=== PATIENT | female | born 1950 | race Caucasian/White ===

== ENCOUNTER 2017-06-19 14:59 | Inpatient (IN) | payer OTHER, MEDICARE ==
[~2017-06-19] VITALS: Ht 157.5 cm; Wt 68.0 kg
[2017-06-19] VITALS (7 sets, daily range): BP systolic 119–166; BP diastolic 76–94
[~2017-06-19 14:59] MED LIST: ARIMIDEX1 MG PO; AUGMENTIN500TAB PO; CETIRIZ/PSE1 TAB PO; COMBIVENT RESPIMAT IN; EQ OMEPRAZOLE20 MG PO; FLONASE NASAL50 MCG; MAXZIDE-2537.5 MG/TA PO; MECLIZINE25 M1 PO; MEDDOSEPAK PO; ONDANSETRON4 MG PO; PREDNISONE20 MG PO; SPIRIVA HANDIHALER IN; SYMBICORT1 AE1 IN; XGEVA SC; ZPAK PO
[2017-06-19 15:50] LABS: HEMATOCRIT 38.5 % (37.0-47.0); HEMOGLOBIN 13.4 g/dl (12.0-16.0); IMMATURE GRANULOCYTES 4.6 % (0.0-1.0); MEAN CELL VOLUME 82.6 fL CALC (80.0-100.0); MEAN CORPUSCULAR HGB 28.8 pG CALC (26.0-32.0); MEAN CORPUSCULAR HGB CONC 34.8 g/L CALC (32.0-36.0); NEUT# 9.1 thou/uL (2.00-7.15); RED BLOOD COUNT 4.66 mill/uL (4.20-5.60); RED CELL DISTRI WIDTH 14.4 % (11.5-15.5)
[2017-06-19 16:04] LABS: ALBUMIN 3.7 g/dL (3.2-5.0); BILIRUBIN, TOTAL 0.5 mg/dL (0.0-1.4); CALCIUM 8.3 mg/dL (8.4-10.2); TOTAL PROTEIN 6.1 g/dL (6.3-8.2)
[2017-06-19 16:36] LABS: POTASSIUM 5.2 mmol/l (3.5-5.1)
[2017-06-19 16:37] LABS: CREATININE 8.1 mg/dL (0.5-1.0)
[2017-06-19 20:23] LABS: CALCIUM 7.6 mg/dL (8.4-10.2)
[2017-06-19 20:31] LABS: CREATININE 8.3 mg/dL (0.5-1.0); POTASSIUM 5.4 mmol/l (3.5-5.1)
[2017-06-19 23:24] LABS: URINE BLOOD DIPSTICK LARGE (NEGATIVE); URINE CLARITY CLEAR; URINE COLOR YELLOW; URINE GLUCOSE - DIPSTICK NEGATIVE (NEGATIVE); URINE KETONE NEGATIVE (NEGATIVE); URINE LEUK ESTERASE LARGE (NEGATIVE); URINE NITRITE - DIPSTICK NEGATIVE (Negative); URINE PROTEIN - DIPSTICK TRACE mg/dL (NEG-TRACE); URINE SPECIFIC GRAVITY <=1.005; URINE UROBILINOGEN - DIPSTICK 0.2 E.U./dL (0.2)
[2017-06-19 23:26] LABS: URINE BILIRUBIN - DIPSTICK NEGATIVE (NEGATIVE)
[2017-06-19 23:36] LABS: URINE BACTERIA FEW hpf; URINE RBC >100 RBC/hpf (0-5); URINE SQUAMOUS EPITHELIAL CELL FEW EPI/hpf (0-FEW)
[2017-06-20 00:01] VITALS: BP 139/57
[2017-06-20 05:18] LABS: HEMATOCRIT 35.5 % (37.0-47.0); HEMOGLOBIN 12.6 g/dl (12.0-16.0); MEAN CELL VOLUME 82.4 fL CALC (80.0-100.0); MEAN CORPUSCULAR HGB 29.2 pG CALC (26.0-32.0); MEAN CORPUSCULAR HGB CONC 35.5 g/L CALC (32.0-36.0); NEUT# 10.48 thou/uL (2.00-7.15); RED BLOOD COUNT 4.31 mill/uL (4.20-5.60); RED CELL DISTRI WIDTH 14.3 % (11.5-15.5)
[2017-06-20 05:42] LABS: ALBUMIN 3.3 g/dL (3.2-5.0); BILIRUBIN, TOTAL 0.5 mg/dL (0.0-1.4); CALCIUM 6.9 mg/dL (8.4-10.2); TOTAL PROTEIN 5.6 g/dL (6.3-8.2)
[2017-06-20 05:52] LABS: CREATININE 8.5 mg/dL (0.5-1.0); POTASSIUM 5.4 mmol/l (3.5-5.1)
[2017-06-20 06:00] VITALS: BP 128/82
[2017-06-20 08:00] VITALS: BP 136/69
[2017-06-20 10:00] VITALS: BP 135/83
[2017-06-20] MEDS ORDERED: ASPIRINCHW 81MG PO (11:53)
[2017-06-20] MEDS ORDERED: CLOPIDOGREL75 MG PO (11:54)
[2017-06-20] MEDS ORDERED: COMBIVENT RESPIMAT IN (11:58)
[2017-06-20] MEDS ORDERED: DUONEB IN (11:59)
[2017-06-20 12:00] VITALS: BP 112/80
[2017-06-20] MEDS ORDERED: LOPRESSOR50 M1 PO (12:01)
[2017-06-20] MEDS ORDERED: PRAVASTATIN40 MG (12:04)
[2017-06-20] MEDS ORDERED: PROAIR RES108 MCG/AC IN (12:05)
[2017-06-20] MEDS ORDERED: VITAMIN B CO PO (12:07)
[2017-06-20] MEDS ORDERED: PROTONIX40 M2 PO (12:11)
== END 2017-06-20 13:20 | DRG 683 ==
LOC: MS2 14:59 → ICU 22:33
PROVIDERS: ADMIT Internal Medicine Geriatric Medicine; ATTEND Internal Medicine Geriatric Medicine
PROC: 0T9B70Z Drainage of Bladder with Drainage Device, Via Natural or Artificial Opening (ICD-10-PCS; principal; 2017-06-19)
DX: N17.9 Acute kidney failure, unspecified (principal); E87.1 Hypo-osmolality and hyponatremia; J44.9 Chronic obstructive pulmonary disease, unspecified; I25.10 Atherosclerotic heart disease of native coronary artery without angina pectoris; Z85.3 Personal history of malignant neoplasm of breast; Z92.3 Personal history of irradiation; Z92.21 Personal history of antineoplastic chemotherapy; Z90.10 Acquired absence of unspecified breast and nipple; Z95.5 Presence of coronary angioplasty implant and graft
CPT/HCPCS: J2060; S0164